=== PATIENT | female | born 1995 | race Caucasian/White ===

== ENCOUNTER 2017-05-22 09:59 | Emergency (ER) | payer OTHER ==
[2017-05-22 11:55] LABS: BUN/CREATININE RATIO 14.28; CALCIUM SERUM 9.5 mg/dL (8.4-10.2); CREATININE SERUM 0.7 mg/dL (0.6-1.4); GLOM FILT RATE Estimated 124.7 mL/min (>60); POTASSIUM 3.7 mmol/L (3.5-5.1)
== END 2017-05-22 12:28 | disposition home or self-care (01) ==
LOC: SED 09:59
PROVIDERS: Emergency Medicine
DX: G43.909 Migraine, unspecified, not intractable, without status migrainosus (principal); Z88.2 Allergy status to sulfonamides; Z88.8 Allergy status to other drugs, medicaments and biological substances
CPT/HCPCS: 36415; 80048; 84703; 96361; 96374; 96375; 99283; J1200; J1885; J2550